=== PATIENT | female | born 1950 | race Caucasian/White ===

== ENCOUNTER → 2016-06-24 | Outpatient (CLI) | payer OTHER ==
[~2016-06-24] MED LIST: ALLEGRA180 MG PO; AMBIEN 5 MG TABL5 M1 PO; CALCIUM; MIACALCIN; OMEGA-31000 MG; PRILOSEC 20 MG20 MG PO; VITAMIN D400 UNI1
== END ==
LOC: RAD 02:15
DX: Z12.31 Encounter for screening mammogram for malignant neoplasm of breast (principal); N63 Unspecified lump in breast; M85.80 Other specified disorders of bone density and structure, unspecified site; N95.9 Unspecified menopausal and perimenopausal disorder